=== PATIENT | male | born 1990 | race Two or more races ===

== ENCOUNTER 2018-12-30 00:28 | Emergency (ER) | payer OTHER ==
[~2018-12-30] VITALS: Ht 180.3 cm; Wt 70.3 kg
[2018-12-30] MEDS ORDERED: KETO10TA2 PO (04:15)
== END 2018-12-30 04:26 | disposition home or self-care (01) ==
LOC: ER 00:28
DX: S43.014A Anterior dislocation of right humerus, initial encounter (principal); W22.8XXA Striking against or struck by other objects, initial encounter; Y93.89 Activity, other specified; Y92.89 Other specified places as the place of occurrence of the external cause; Y99.8 Other external cause status